=== PATIENT | male | born 1945 | race Caucasian/White ===

== ENCOUNTER → 2018-02-16 | Outpatient (CLI) | payer MEDICARE ==
[~2018-02-16] MED LIST: AMOX1TAB12 PO; ASPI-496 PO; ASPI-515 PO; ATEN50TA41 PO; ATOR40TA78 PO; BUDE10.2 INH; CHOL200074 PO; CLON0.1T PO; CYAN100063 SL; CYAN1TAB29 PO; DILT120C64 PO; FLEC50TA25 PO; GLIP10TA13 PO; GUAI400T6 PO; HYDR50TA3 PO; HYDR5CRY PO; LEVA0.318 INH; LOSA100T6 PO; METF500T4 PO; METO-93 PO; MULT-717 PO; NIFE90TA8 PO; RIVA20TA PO; SERT50TA PO; SIMV20TA3 PO; THYR60TA PO; WARF-36 PO; WARF2.5T73 PO
[2018-02-16 11:52] LABS: BASOPHILS # (AUTO) 0.01 x10^3/uL (0-0.1); BASOPHILS % (AUTO) 0 % (0-1); EOSINOPHILS # (AUTO) 0.16 x10^3/uL (0-0.4); EOSINOPHILS % (AUTO) 3 % (1-7); LYMPHOCYTES # (AUTO) 1.09 x10^3/uL (1-3.4); LYMPHOCYTES % (AUTO) 18 % (22-44); MD NO; MEAN CORPUSCULAR HEMOGLOBIN 31.1 pg (27.5-34.5); MEAN CORPUSCULAR HGB CONC 33.5 g/dL (33.2-36.2); MEAN PLATELET VOLUME 9.4 fL (7.4-10.4); MONOCYTES # (AUTO) 0.68 x10^3/uL (0.2-0.8); MONOCYTES % (AUTO) 11 % (2-9); NEUTROPHILS % (AUTO) 68 % (42-75); PLATELET COUNT 174 x10^3/uL (130-400); RED BLOOD COUNT 4.14 x10^6/uL (4.38-5.82); RED CELL DISTRIBUTION WIDTH 13.6 % (9.4-14.8)
[2018-02-16 12:04] LABS: ANION GAP 7 mmol/L (5-15); CALCIUM 9.2 mg/dL (8.5-10.1); CHLORIDE 106 mmol/L (98-107); CREATININE 1.48 mg/dL (0.7-1.3)
== END | disposition home or self-care (01) ==
LOC: STAR 10:47
PROVIDERS: ATTEND Surgery
DX: Z01.818 Encounter for other preprocedural examination (principal)
CPT/HCPCS: 36415; 80048; 85025